=== PATIENT | female | born 1990 | race Hispanic/Latino ===

== ENCOUNTER 2020-10-30 08:24 | Inpatient (IN) | payer MEDICAID, OTHER, SELFPAY ==
[2020-10-30 08:53] VITALS: BMI 32.8
[2020-10-30] MEDS ORDERED: hydrALAZINE 20 MG/ML VIAL SLOW IVP PRN (08:58)
[2020-10-30] MEDS ORDERED: Ondansetron PF 4 MG/2 ML Vial IVP PRN (08:58)
--- NOTE | 2020-10-30 10:26 | HP ---
PRIMARY OB: Trace Napoles MD CHIEF COMPLAINT: Back pain. HISTORY OF PRESENT ILLNESS: The patient is a 30-year-old female with an intrauterine at 23 weeks' gestation, being followed by Dr. Trace Napoles. The patient reports a 3-day history of left flank pain and worsening dysuria with some nausea and vomiting and a fever up to 102. The patient was evaluated in [facility] where she was evaluated and diagnosed with suspected pyelonephritis, given 2 g of Rocephin, about 2 L of IV fluids, and a gram of Tylenol, and subsequently, transferred to Labor and Delivery for further management. On arrival, the patient confirms that she has been having flank pain for several days and dysuria, fever up to 102. She denies uterine contractions or vaginal bleeding. She denies a change in discharge. She does report a history of kidney infections a couple of years ago, but has not had one with this . She denies any allergies. She denies headache. She denies change of smell and taste. She denies cough. She denies chest pain or shortness of breath. She denies currently nausea and vomiting, diarrhea, or constipation. She denies any rashes, hip problems, knee problems, muscle weakness. She denies change in discharge, vaginal bleeding. Reports urinary urgency and frequency. PAST MEDICAL HISTORY: Negative. PAST SURGICAL HISTORY: Negative. SOCIAL HISTORY: Denies drug, alcohol, or tobacco use. ALLERGIES: NO KNOWN DRUG ALLERGIES. MEDICATIONS: vitamins. OB HISTORY: She has had 4 previous vaginal deliveries. OB LABS: Unavailable at the time of dictation. REVIEW OF SYSTEMS: Per HPI. PHYSICAL EXAMINATION: VITAL SIGNS: On arrival, blood pressure is 100/59, heart rate of 93, respiratory rate of 18, saturating 99% on room air, and temperature 98.3. GENERAL: She appears to be in no acute distress. She is alert, oriented, cooperative, and pleasant to interact with. HEENT: Head is normocephalic, atraumatic. LUNGS: Clear to auscultation bilaterally. HEART: Has regular rate and rhythm. ABDOMEN: Gravid. She has some suprapubic tenderness to palpation. She has left-sided flank tenderness and CVA tenderness to palpation. EXTREMITIES: Nontender, nonedematous. : Exam has been deferred. heart tracing shows a fetus with a baseline in the 140s with moderate long-term variability, appropriate for 23 weeks' gestation. No contractions visible. Labs show sodium of 132, potassium of 3.3, creatinine of 0.62, glucose of 170, lactic acid of 1.3, AST of 14, ALT of 12, lipase of 22. Urine is specific for positive nitrites, 500 leukocyte esterase, greater than 50 white blood cells, 4 to 6 red blood cells, no squamous cells, 1+ bacteria. ASSESSMENT AND PLAN: The patient is a 30-year-old multiparous female with an intrauterine at 23 weeks' gestation with pyelonephritis, on Rocephin and morphine for pain control. She has received about 2.5 L of IV fluids. At this point, we will continue to hydrate her over the next 24 hours to receive approximately a total of 4 to 5 L. The patient has decent pain control this moment. Fetus is appropriate for gestational age on heart tracing. We will get a renal ultrasound of the left kidney in urinary system to look for any signs of stone that may complicate this infection. Her primary OB, Dr. Trace Napoles, has been notified and will be assuming care. Job ID: [id number]
--- NOTE | 2020-10-30 10:33 | ULT ---
Exam: Bilateral renal ultrasound HISTORY: Left flank pain. patient. Pyelonephritis. COMPARISON: None FINDINGS: Right kidney: Normal cortical echotexture. No hydronephrosis. Right kidney measurements: 5.2 x 6.6 x 13.6 cm. Left kidney: Normal cortical echotexture. No hydronephrosis Left kidney measurements 6.5 x 12.9 x 5.5 cm. Urinary bladder: Normal mucosa. 168 mL bladder volume. Bilateral ureteral jets identified. 20 minute post void bladder demonstrates moderate distention. Single intrauterine gestation. heart tones 147 bpm IMPRESSION: 1. No hydronephrosis 2. Bilateral ureteral jets are identified 3. Moderate bladder distention, 20 minutes post voiding.
[2020-10-30 12:33] LABS: SARS-CoV-2 MS2 Positive; SARS-CoV-2 N Gene Negative; SARS-CoV-2 S Gene Negative; SARS-CoV-2 by NAA Not Detected (NotDetected); SARS-CoV-2 orf1ab Negative
[2020-10-30] MEDS: Acetaminophen 500 MG TAB PO PRN ×2 (14:06→21:00)
[2020-10-30] MEDS: Lactated Ringer's 1,000 ML IV SCH ×2 (20:59→21:12)
[2020-10-30 21:05] VITALS: BP 102/56; TEMP 98.4
[2020-10-30] MEDS ORDERED: Acetaminophen/Codeine 30-300mg Tablet PO PRN ×2 (21:55)
[2020-10-30] MEDS ORDERED: Morphine 4 MG/ML VIAL SLOW IVP SCH (22:30)
[2020-10-31] MEDS: diphenhydrAMINE 50 MG/ML VIAL IVP SCH ×2 (00:04→22:20)
[2020-10-31] MEDS ORDERED: cefTRIAXone\\ROCEPHIN 1 GM in Sodium Chloride 0.9% 100 ML IVPB SCH (10:00)
[2020-10-31] MEDS ORDERED: cefTRIAXone\\ROCEPHIN 2 GM in Sodium Chloride 0.9% 100 ML IVPB SCH (10:00)
[2020-10-31] MEDS: Acetaminophen 500 MG TAB PO PRN (20:21)
[2020-11-01] MEDS ORDERED: cefTRIAXone\\ROCEPHIN 2 GM in Sodium Chloride 0.9% 100 ML IVPB SCH (08:00)
[2020-11-01] MEDS ORDERED: Milk Of Magnesia 30 ML UDCUP PO PRN (09:03)
--- NOTE | 2020-11-01 09:42 | DIS ---
DATE OF ADMISSION: 10/30/2020 DATE OF DISCHARGE: 11/01/2020 PRINCIPAL DIAGNOSIS: Pyelonephritis at 23 weeks. OPERATIVE PROCEDURES: None. CONSULTANTS: None. BRIEF HISTORY: This is a 30-year-old female, G5, P4, at 23 weeks estimated gestational age with three days of dysuria and urinary frequency with two days of left flank pain, nausea, vomiting, and fever. Exam on admission showed temperature 98.3, heart rate 93, and blood pressure 100/60. Exam was significant only for CVA tenderness on the left. Laboratory and x-ray data on admission; UA showed greater than 50 wbc's, 1+ bacteria. LFTs were normal. A CBC showed a white count 11, hemoglobin 11.2, hematocrit 33, and platelets 146. Renal ultrasound was normal. HOSPITAL COURSE: Ms. Bauer was admitted to Labor and Delivery. She was aggressively hydrated and started on IV antibiotics. Blood cultures were obtained and were eventually negative. Urine culture grew out E. coli, resistant only to ampicillin and Bactrim. She remained afebrile during her hospital stay. She tolerated regular diet. Her pain improved in the left flank. She was discharged in good condition on 11/01/2020. DISCHARGE INSTRUCTIONS: ACTIVITY: As tolerated. DIET: Regular. MEDICATIONS: Keflex 500 mg t.i.d. x10 days, then Macrobid 100 mg daily thereafter for the duration of her . FOLLOWUP: Follow up in 1 to 2 [address] with Dr. Napoles. Job ID: [id number]
== END 2020-11-01 10:20 | disposition home or self-care (01) | DRG 832 ==
LOC: L&D 08:24 → L&D/OP 08:24 → L&D 16:47
PROVIDERS: ADMIT Obstetrics & Gynecology; ATTEND Obstetrics & Gynecology
DX: O23.02 Infections of kidney in pregnancy, second trimester (principal); Z16.11 Resistance to penicillins; Z16.29 Resistance to other single specified antibiotic; Z3A.23 23 weeks gestation of pregnancy; B96.20 Unspecified Escherichia coli [E. coli] as the cause of diseases classified elsewhere; Z20.822 Contact with and (suspected) exposure to COVID-19
CPT/HCPCS: 36415; 71045; 76770; 80053; 81003; 81015; 82550; 83605; 83690; 85025; 87040; 87077; 87086; 87149; 87186; 87635; 93005; J0696; J1200; J2270; J2405; J3490; U0003